=== PATIENT | female | born 1990 | race Caucasian/White ===

== ENCOUNTER 2018-04-17 09:45 | Emergency (ER) | payer OTHER ==
[2018-04-17 09:57] VITALS: BP 121/74
[2018-04-17] MEDS ORDERED: DEXAMETHASONE 10 MG/ML VIAL PO STA (11:03)
--- NOTE | 2018-04-17 11:07 | ED Physician Documentation ---
PD HPI BACK INJURY - Stated complaint Stated Complaint: LOWER BACK PX - History obtained from History obtained from: Patient, Family - History of Present Illness Location: Lower Type of injury: Other (lifting at work) Where injury occurred: Work Timing - onset: Today, How many days ago (initially used back 5 days ago) Timing - duration: Hours Timing - details: Abrupt onset, Still present Quality: Pain, Spasm, Sharp Associated symptoms: No: Fever, Weakness, Numbness, Incontinent of urine, Unable to urinate, Hematuria, Incontinent of stool Contributing factors: No: Anticoagulated Similar symptoms before: Has not had sx before Recently seen: Not recently seen - Additional information Additional information: 27-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 She did not have any pain in her back immediately with this but then developed a bit of a low-grade backache. This morning she was at work when she lifted up a 10 pound box of cabbage and had sudden onset of severe pain in the mid middle portion of her lower back radiating down both legs. This required her to call off work and she has been uncomfortable for several days preceding this. Review of Systems Constitutional: denies: Fever, Chills Eyes: denies: Decreased vision Ears: denies: Ear pain Nose: denies: Congestion Throat: denies: Sore throat Respiratory: denies: Cough GI: denies: Vomiting : denies: Dysuria Skin: denies: Rash Musculoskeletal: reports: Back pain. denies: Neck pain, Extremity pain Neurologic: denies: Generalized weakness, Focal weakness, Numbness PD PAST MEDICAL HISTORY - Past Medical History Past Medical History: Yes Cardiovascular: Valve disorder - Past Surgical History Past Surgical History: No - Present Medications Home Medications: Ambulatory Orders Medication Instructions Recorded Confirmed Cyclobenzaprine [Flexeril] 10 mg PO TID PRN #20 tablet 04/17/18 HYDROcod/ACETAM 5/325 [Plover 5/325] 1 - 2 ea PO Q6H PRN #15 tablet 04/17/18 - Allergies Allergies/Adverse Reactions: Allergies Allergy/AdvReac Type Severity Reaction Status Date / Time codeine Allergy Anaphylaxis Verified 04/17/18 09:52 - Social History Does the pt smoke?: No Smoking Status: Never smoker Does the pt drink ETOH?: No Does the pt have substance abuse?: No - Immunizations Immunizations are current?: Yes PD ED PE NORMAL - Vitals Vital signs reviewed: Yes (normal ) - General General: Alert and oriented X 3, No acute distress, Well developed/nourished - HEENT HEENT: Atraumatic, PERRL - Neck Neck: Supple, no meningeal sign - Respiratory Respiratory: No respiratory distress - Back Back: No CVA TTP, Other (There is tenderness to the midline spine and paraspinous muscles of the lower lumbar spine. The tenderness extends into the sciatic notch bilaterally . ) - Derm Derm: Normal color, Warm and dry, No rash - Extremities Extremities: No deformity, No edema - Neuro Neuro: Alert and oriented X 3, No motor deficit, No sensory deficit, Normal speech Eye Opening: Spontaneous Motor: Obeys Commands Verbal: Oriented GCS Score: 15 - Psych Psych: Normal mood, Normal affect Results - Vitals Vitals: Vital Signs - 24 hr 04/17/18 09:50 Temperature 36.5 C Heart Rate 71 Respiratory 18 Rate Blood Pressure 121/74 O2 Saturation 100 Oxygen O2 Source Room air PD MEDICAL DECISION MAKING - ED course Complexity details: considered differential, d/w patient, d/w family ED course: 27-year-old female with an acute low back injury has bilateral side sciatica after loading injury about 5 days ago. She is administered dexamethasone 10 mg here orally and we will place her on some pain medication muscle relaxant and off work for 1 week. - Sepsis Event Vital Signs: Vital Signs - 24 hr 04/17/18 09:50 Temperature 36.5 C Heart Rate 71 Respiratory 18 Rate Blood Pressure 121/74 O2 Saturation 100 Oxygen O2 Source Room air Departure - Departure Disposition: 01 Home, Self Care Clinical Impression: Sciatica Qualifiers: Laterality: bilateral Qualified Code(s): M54.31 - Sciatica, right side; M54.32 - Sciatica, left side; M54.32 - Sciatica, left side Instructions: ED Sciatica Follow-Up: [facility] [Provider Group] Prescriptions: Cyclobenzaprine [Flexeril] 10 mg PO TID PRN #20 tablet PRN Reason: Spasms HYDROcod/ACETAM 5/325 [Plover 5/325] 1 - 2 ea PO Q6H PRN #15 tablet PRN Reason: Pain Forms: Activity restrictions
[2018-04-17] MEDS ORDERED: CHERRY SYRUP 10 ML UDC PO ONE (11:28)
== END 2018-04-17 11:19 | disposition home or self-care (01) ==
LOC: ED 09:45
DX: M54.31 Sciatica, right side (principal); M54.32 Sciatica, left side
CPT/HCPCS: 99283; A9270